=== PATIENT | female | born 1970 | race Caucasian/White ===

== ENCOUNTER → 2017-10-02 | Outpatient (CLI) | payer OTHER | END | disposition home or self-care (01) | LOC: C.LABPBG 08:38 | PROVIDERS: ATTEND Student in an Organized Health Care Education/Training Program | DX: Z00.00 Encounter for general adult medical examination without abnormal findings (principal) ==

== ENCOUNTER 2023-12-17 06:53 | Inpatient (IN) ==
--- OUTSIDE RECORDS SUMMARY | 2023-12-17 07:00 | External Medical Summary | Continuity of Care Document ---
Author Name Unknown Organization [address] Address [address] [place] [address] [id number] Care Team Providers Care Equal Opportunity Officer Name Role Phone Maryann Terry Primary Care Physician [phone] [facility]counter [facility] [id number] Date(s): 12/12/23 - 12/12/[address] [address] [phone] Encounter Diagnosis Fever(Discharge Diagnosis) - 12/12/23 Myalgia(Discharge Diagnosis) - 12/12/23 Cough(Discharge Diagnosis) - 12/12/23 Discharge Disposition: Home or Self Care Attending Physician: KECIA Stanley Danielle B Allergies, Adverse Reactions, Alerts Substance Criticality Severity Reaction Reaction Severity Status simvastatin Muscle ache Joint pain Active Adhesive bandage Unable to assess criticality Mild blisters redness Active Bee stings sensitivity to bees Active Assessment and Plan Extracted from: Title:Acute Visit Note Author:KECIA Stanley Dani elle B Date:12/12/23 1.Fever Fever of unknown etiology.Will order tickbornedisease testing including Lyme, Anaplasma, Babesia. Will also orderUA with reflex to culture, CBC with differential. 2.Myalgia In addition totesting above, will orderESR, CRP, ANAwithtiter, RF, CMP. 3.Cough Recommended the patient start oral antihistaminesuch as Zyrtec or Amber to help with postnasal drainage. Chest x-ray ordered as cough has been ongoing x 4 weeks and patient has past hx of breast ca. -Rest of plan dependent on testing results. -Ibuprofen/Tylenolfor pain and fever. -Follow-up if symptoms worsen or fail to improve. - Patient verbalizes understanding regarding plan of care and all questions answered. Immunizations Given and Recorded Vaccine Date Status Refusal Reason tetanus/diphtheria/pertuss, acel (Tdap) 08/29/20 G iven influenza virus vaccine, inactivated 1 10/18/17 Re corded influenza virus vaccine, inactivated 2 10/18/16 Re corded influenza virus vaccine, inactivated 3 12/16/06 Re corded tetanus toxoids-diphtheria, Td (Adult) 4 02/17/10 Recorded tetanus toxoids-diphtheria, Td (Adult) 5 07/09/00 Recorded 1Location History: patient 2Result Comment: 2018-02-13: Historical information-source unspecified 3Result Comment: 2018-02-13: Historical information-source unspecified 4Location History: patient 5Result Comment: 2018-02-13: Historical information-source unspecified Medications All Day Allergy (Cetirizine) 10 mg oral tablet Start: 08/18/23 7:58:00 AM EDT, 1 tab, PO, Daily, Disp# 90 tab, Refills: 3, PRN: NEEDED FOR ALLERGY SYMPTOMS, Pharmacy: [id number] Start Date: 08/18/23 Status: Ordered Aspirin Low Strength 81 mg oral delayed release tablet Start: 12/12/23 1:05:00 PM EDT, 1 tab, PO, Daily Start Date: 12/12/23 Status: Ordered benzonatate 100 mg oral capsule Start: 12/12/23 1:30:00 PM EDT, 2 cap, PO, tid, Disp# 30 cap, Pharmacy: [id number] Start Date: 12/12/23 Status: Ordered ibuprofen 200 mg oral capsule Start: 12/11/17 3:02:00 PM EDT, 3 cap, PO, q6h, PRN: as needed for headache Start Date: 12/11/17 Status: Ordered MiraLax oral powder for reconstitution Start: 09/03/22 11:10:00 AM EDT, 17 g =, PO, Daily, Disp# 527 g, Refills: 3, Pharmacy: [id number] Start Date: 09/03/22 Status: Ordered mupirocin 2% topical ointment Start: 09/03/22 11:27:00 AM EDT, 1 appl, topical, tid, Disp# 22 g, Refills: 3, Pharmacy: [id number] Start Date: 09/03/22 Status: Ordered phentermine 37.5 mg oral tablet Start: 03/01/21 3:54:00 PM EST, 1 tab, PO, Daily Start Date: 03/01/21 Status: Ordered topiramate 25 mg oral capsule Start: 03/01/21 3:54:00 PM EST, 1 cap, PO, bid Start Date: 03/01/21 Status: Ordered triamcinolone 0.1% topical cream See Instructions, Disp# 60 g, Refills: 0, use 1 application topically 3 times a day, Pharmacy: [id number] Start Date: 08/07/20 Status: Ordered Tums Start: 10/31/22 1:07:00 PM EDT, for calcium Start Date: 10/31/22 Status: Ordered Tylenol Start: 03/06/18 8:20:00 AM EST, 1,000 mg =, PO, q8h Start Date: 03/06/18 Status: Ordered vitamin D Start: 12/12/23 1:04:00 PM EDT, vitamin D Start Date: 12/12/23 Status: Ordered Mental Status 12/12/23 Barriers to Learning one year Vision imp airment, Other: glasses Mandatory Health Literacy Documentation Yes Health Literacy Communication Barriers N ever Primary Language Jamaican Problem List Condition Confirmation Course Effective Dates Status H ealth Status Informant Anxiety Confirmed Active Nevus Confirmed Active Acquired absence of both breasts Confirmed Active Chronic low back pain Confirmed 06/21/13 Active Heartburn Confirmed Active Hx of breast cancer Confirmed Active Hyperlipidemia Confirmed 10/10/09 Active Seasonal allergies Confirmed Active Diagnosis Diagnosis Type Effective Dates Health Status Clini shakira Service Informant Fever Discharge Diagnosis 12/12/23 Non-Specified Myalgia Discharge Diagnosis 12/12/23 Non-Specified Cough Discharge Diagnosis 12/12/23 Non-Specified Procedures Procedure Date Related Diagnosis Body Site Status MRI of breast 1 11/28/22 Completed Hysteroscopy 2 01/03/22 Completed Dilation and curettage 3, 4 2021 Completed Colonoscopy 5 08/05/18 Completed DELAYED BREAST PROSTHESIS 06/03/18 Completed Removal of right breast impl ant and I&D 03/04/18 Completed Breast reconstruction 6 01/28/18 C ompleted Mastectomy 7 01/28/18 Completed Stereotactically guided core needle biopsy of breast 11/11/17 Completed History of tubal ligation 1987 Completed Insertion of chest tube 1987 C ompleted last pap:2018 8 Completed Surgery 9 Completed 1Impression: No evidence of implant rupture bilaterally 2with D/C 3november 2021 4[place] 5COLO to cecum. redundant colon, repeat colo 10 years 6STE placement 7bilateral 8last pap: 2018 9mole removed from chin Vital Signs Most recent to oldest [Reference Range]: 1 Patient Weight 83.1 kg (12/12/23 1:05 PM) Temperature [36.5-37.9 DegC] 38.0 DegC *HI* (12/12/23 1:05 PM) Heart Rate 102 bpm (12/12/23 1:05 PM) Respiratory Rate 18 br/min (12/12/23 1:05 PM) Blood Pressure 120/80mmHg (12/12/23 1:05 PM) Cuff Pulse Pressure 40 mmHg (12/12/23 1:05 PM) Social History Social History Type Response Smoking Status Never smoked cigaret jocelyn Sex Female Sex Representation Female (finding) Implantable Device List Procedure Provider Procedure Date Device Type Site Unknown Unknown 09/15/18 Unknown Unknown Device Identifier Serial Number Lot or Batch Number Manufacturing Date Expiration Date Distinct Identification Code MRI Safety Implantable Status Assigning Authority Unknown Unknown [id number] Unknown 06/30/23 Unknown Unknown Active Unk nown Unknown Unknown [id number] Unknown 05/21/23 Unknown Unknown Active Unkn own FCM Outpt Note * KECIA Stanley Danielle B: PERFORM Event Display: FCM Outpt Note Authored Date: [id number] Chief Complaint sick for a month. started with head cold. continues with cough. 2 weeks ago had 2 ticks on her back. have achiness all over. neck stiff. temps 99-101 the past week. History of Present Illness Patient is a 53-year-old female here forcough x 1 month. Also with arthralgias and myalgias andneckand left lateral chestfor the past week.Intermittent fevers for the past week with highest temperaturearound 101. Intermittent fatigue. Cedar some bladder pressure 2 days ago but patient reports she took Diflucan andsymptoms are improved. Two simultaneous tick bites 2 weeks ago on back thought to be present for 48 hours.Denies congestion, facial pressure, ear pain, sore throat, night sweats, nausea, vomiting, diarrhea, constipation, rash. Review of Systems Unless stated in HPI. Physical Exam Vitals & Measurements T:38.0C HR:102(Monitored) RR:18 BP:120/80 SpO2:98% WT:83.100kg(Dosing) WT:83.1kg PHQ2 Data(Data Documented on:12/12/2023 13:05) Emotional health assessment NEGATIVE CONSTITUTIONAL: Well-developed, well nourished. No acute distress. NEUROLOGICAL: Patient alert, orientated, memory intact. Gait steady. HEENT: Head is normocephalic. Eyes- symmetrical, no erythema or discharge. Ears- Canals without erythema or discharge. Tympanic membrane intact, no erythema or effusion present. Nares- are patent bilaterally, no discharge noted. Oral- Oropharynx is clear, no erythema or exudate. Oral mucosa pink and moist. Lips are pink and moist, no lesions. Neck- Supple, no lymphadenopathy. LUNGS: Respirations even and unlabored, chest expansion symmetrical. Lung sounds clear in all lobes, no wheezing, crackles, or adventitious breath sounds. HEART: Rate and rhythm regular. No cardiac murmur, click, or rub noted. ABDOMEN: Soft, nontender. Bowel sounds active in all four quadrants. MUSCULOSKELETAL/EXTREMITIES: Extremities are intact, no redness or edema noted of upper or lower extremity.2small palpable potential lymph nodes anterior left axilla. Mobile. INTEGUMENTARY: Skindry, warm to touch. No rash, wounds, lesions noted on visible skin. PSYCHOSOCIAL: Calm and cooperative, interacts appropriately withstaff. Assessment/Plan 1.Fever Fever of unknown etiology.Will order tickbornedisease testing including Lyme, Anaplasma, Babesia. Will also orderUA with reflex to culture, CBC with differential. 2.Myalgia In addition totesting above, will orderESR, CRP, ANAwithtiter, RF, CMP. 3.Cough Recommended the patient start oral antihistaminesuch as Zyrtec or Amber to help with postnasal drainage. Chest x-ray ordered as cough has been ongoing x 4 weeks and patient has past hx of breast ca. -Rest of plan dependent on testing results. -Ibuprofen/Tylenolfor pain and fever. -Follow-up if symptoms worsen or fail to improve. - Patient verbalizes understanding regarding plan of care and all questions answered. Problem List/Past Medical History Ongoing Acquired absence of both breasts Anxiety Chronic low back pain Heartburn Hx of breast cancer Hyperlipidemia Nevus Seasonal allergies Resolved COVID-19 vaccine series completed Procedure/Surgical History MRI of breast| Service Date: 11/28/2022Hysteroscopy| Service Date: 2Dilation and curettage| Service Date: olonoscopy| Service Date: 08/05/2018DELAYED BREAST PROSTHESIS| Service Date: 2018 Removal of right breast implant and I&D| Service Date: 03/04/2018 Breast reconstruction| Service Date: 01/28/2018Mastectomy| Service Date: 01/28/2018Stereotactically guided core needle biopsy of breast| Service Date: 11/11/2017Insertion of chest tube| ServiceDate: 1988History of tubal ligation| Service Date: 1987last pap:2018Surgery Medications acetaminophen(Tylenol), 1000 mg, PO, q8h aspirin(Aspirin Low Strength 81 mg oral delayed release tablet), 81 mg= 1 tab, PO, Daily benzonatate(benzonatate 100 mg oral capsule), 200 mg= 2 cap, PO, tid calcium carbonate(Tums) cetirizine(All Day Allergy (Cetirizine) 10 mg oral tablet), 1 tab, PO, Daily, PRN ibuprofen(ibuprofen 200 mg oral capsule), 600 mg= 3 cap, PO, q6h, PRN mupirocin topical(mupirocin 2% topical ointment), 1 appl, topical, tid, 3 refills phentermine(phentermine 37.5 mg oral tablet), 37.5 mg= 1 tab, PO, Daily polyethylene glycol 3350(MiraLax oral powder for reconstitution), 17 g, PO, Daily, 3 refills topiramate(topiramate 25 mg oral capsule), 25 mg= 1 cap, PO, bid triamcinolone topical(triamcinolone 0.1% topical cream), See Instructions unknown medication(vitamin D) Allergies Adhesive bandage (Mild)blisters, redness Bee stingssensitivity to bees simvastatinMuscle ache, Joint pain Social History Smoking Status Never smoked cigarettes Alcohol - Denies Alcohol Use Employment/School - Low 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 Hypertension: Mother and Father. Stroke: Father. Type II diabetes mellitus: MGM. Health Status Family Member(s) Immunizations Vaccine Date Status tetanus/diphtheria/pertuss, acel (Tdap) 08/29/2020 Given influenza virus vaccine, inactivated 10/2017 Recorded Comments : patient influenza virus vaccine, inactivated 10/18/2016 Recorded Comments : 2018-02-13: Historical information-source unspecified tetanus toxoids-diphtheria, Td (Adult) 2010 Recorded Comments : patient influenza virus vaccine, inactivated 12/16/2006 Recorded Comments : 2018-02-13: Historical information-source unspecified tetanus toxoids-diphtheria, Td (Adult) 07/09/2000 Recorded Comments : 2018-02-13: Historical information-source unspecified Recommendations Health Maintenance Pending(in the next year) OverDue Adult Influenza Vaccine due08/17/23and every 1year Due Adult COVID-19 Vaccination due12/12/23Unknown Frequency Adult Social Determinants of Health Screening due12/12/23Unknown Frequency Pneumococcal Vaccine Adults and Adolescents with Chronic Illness due12/12/23One-time only Shingles Vaccine due12/12/23One-time only Satisfied(in the past 1 year) Satisfied Body Mass Index on09/10/23.Satisfied by PATEL Mcduffie Teresa Electronic Signature on File Electronically Reviewed/Signed by: KECIA Hooper Author Signature Dt/Tm:12/12/2023 02:55 PM Family Medicine DBN Patient Care team information Care Team Personnel Name: KECIA Terry Tara Position: Nurse Pract - Family Med Member Role: Primary Care Provider Address: [address] [place] [address], [place] [address] [place] Name: DO Zheng Brendan Position: Physician - Anesthesiologist Member Role: Lifetime Relationship Address: [address] [place] [address] [place] Name: MD Rojo Kristine L Position: Physician - Surgery Oncology Member Role: Lifetime Relationship Address: [address] [facility] [place] [address] [place] Care Team Related Persons Name: CODY BIRCH"
--- NOTE | 2023-12-17 07:17 | Emergency Department Note ---
History of Present Illness General Chief complaint: Illness Stated complaint: FEVER,COUGH,TICK BITES Time Seen by Provider: 12/17/23 06:58 History of Present Illness This is a 53-year-old female that presents to the emergency department via private vehicle with complaints of "fever". The patient states that 5 to 6 weeks ago she had cold-like symptoms and the cough has essentially persisted. Then 3 weeks ago she notes that she was outside doing roadside litter clean up and had 2 ticks that were embedded in her back. These were removed. She then notes that for greater than a week now she has had a fever, body aches, headaches. She states that each day the temperature seems to climb higher. Most recently temp 102 F. She notes that she normally does not experience a fever and the last time she recalls experiencing a fever one of the breast implants was infected postsurgery. The patient does note recent workup in the outpatient setting for the symptoms about 5 days ago. She notes that some of the tickborne tests are still pending. She was to have an outpatient CT scan performed today of the abdomen/pelvis to further assess her symptoms but noting worsening did present here for further assessment. Patient has been utilizing ibuprofen and acetaminophen for pain. She has not exceeded package recommendations. She notes that predominantly she is using ibuprofen and not as much acetaminophen. Home Medications Medication Instructions Recorded Confirmed Type cetirizine 10 mg capsule (Zyrtec) 10 mg PO QAM 09/01/19 12/17/23 History ibuprofen 200 mg tablet 200 mg PO Q6H PRN Pain 12/03/21 12/17/23 History phentermine 37.5 mg tablet 37.5 mg PO QAM #30 tabs 10/30/23 12/17/23 Rx calcium carbonate 1,000 mg PO DAILY 12/17/23 12/17/23 History cholecalciferol (vitamin D3) 50 50 mcg PO DAILY 12/17/23 12/17/23 History mcg (2,000 unit) tablet (Vitamin D3) topiramate 25 mg tablet 50 mg PO QAM 12/17/23 12/17/23 History Allergies Allergy/AdvReac Type Severity Reaction Status Date / Time adhesive Allergy Intermediate Blister Verified 12/17/23 08:24 simvastatin Allergy Unknown Unknown Verified 12/17/23 08:24 Past Med/Surg History Problem List (Updated 12/17/23 @ 10:42 by Matty Mcbride PA-C) Sepsis Back pain Anaplasmosis (Acute) Endometrial polyp Metabolic syndrome Mixed hyperlipidemia History of breast cancer Migraines Dietary counseling and surveillance Skin Lesion Routine gynecological examination Thickened endometrium Medical History Nausea and vomiting after administration of anesthetic agent with general Slow to wake up after anesthesia History of anesthesia reaction burning sensation in arm with IV, when initiating anesthesia Chronic back pain job related Acid reflux rare Anxiety Migraine Overweight Ozempic for this not DM Breast cancer Oct 2017 > no radiation or chemo Dyslipidemia, goal LDL below 160 Seasonal allergic reaction Surgical History History of colonoscopy H/O bilateral mastectomy History of chest tube placement age 17 spontaneous pneumothorax History of bilateral tubal ligation Family History Sister Asthma Mother Diabetes Kidney disease Father Stroke Hypertension Denies family history of Ovarian cancer Breast cancer Colorectal cancer Social History Smoking Status: Never smoker Second Hand Exposure: No; Do You Dip or Chew Tobacco: No; Hx Alcohol Use: No Hx Substance Use: No Preferred Language: Pashto Communication Ability: Effective Peel [employer] Tender Required: No Beliefs That Will Affect Care: None marital status: Current Living Situation: Spouse Feels Safe at Home: Yes Assistive Devices: Glasses Review of Systems A total of 10 systems reviewed and were otherwise negative Physical Exam Vital Signs Vital Signs - 24 hr 12/17/23 06:56 12/17/23 07:27 12/17/23 07:30 Temperature 38.2 C H Temperature Source Temporal Artery Scan Pulse Rate 119 H 110 H 109 H Pulse Rate from SpO2 Sensor 110 H 110 H Respiratory Rate 22 24 24 Blood Pressure 163/76 H Blood Pressure Mean 105 Pulse Oximetry 94 95 95 Oxygen Delivery Method Room Air Sepsis Recent Fever Within 48 Hours Yes Sepsis New/Unexplained Change in Mental Status No Sepsis Action Taken by Nursing MD Previously Notified 12/17/23 07:38 12/17/23 07:51 12/17/23 07:57 Temperature Temperature Source Pulse Rate 105 H 104 H Pulse Rate from SpO2 Sensor Respiratory Rate Blood Pressure Blood Pressure Mean Pulse Oximetry Oxygen Delivery Method Room Air Sepsis Recent Fever Within 48 Hours Sepsis New/Unexplained Change in Mental Status Sepsis Action Taken by Nursing 12/17/23 08:00 12/17/23 08:00 12/17/23 08:06 Temperature Temperature Source Pulse Rate 105 H Pulse Rate from SpO2 Sensor Respiratory Rate Blood Pressure 131/74 131/74 Blood Pressure Mean 94 94 Pulse Oximetry Oxygen Delivery Method Sepsis Recent Fever Within 48 Hours Sepsis New/Unexplained Change in Mental Status Sepsis Action Taken by Nursing 12/17/23 08:12 12/17/23 08:12 12/17/23 08:24 Temperature Temperature Source Pulse Rate 104 H 105 H 103 H Pulse Rate from SpO2 Sensor Respiratory Rate 23 18 Blood Pressure Blood Pressure Mean Pulse Oximetry Oxygen Delivery Method Sepsis Recent Fever Within 48 Hours Sepsis New/Unexplained Change in Mental Status Sepsis Action Taken by Nursing 12/17/23 08:45 12/17/23 08:49 12/17/23 09:00 Temperature 37.8 C H Temperature Source Oral Pulse Rate 96 H 95 H Pulse Rate from SpO2 Sensor Respiratory Rate 22 Blood Pressure Blood Pressure Mean Pulse Oximetry Oxygen Delivery Method Sepsis Recent Fever Within 48 Hours Sepsis New/Unexplained Change in Mental Status Sepsis Action Taken by Nursing 12/17/23 09:00 12/17/23 09:00 12/17/23 09:00 Temperature Temperature Source Pulse Rate Pulse Rate from SpO2 Sensor Respiratory Rate Blood Pressure 97/60 L 97/60 L 97/60 L Blood Pressure Mean 65 65 65 Pulse Oximetry Oxygen Delivery Method Sepsis Recent Fever Within 48 Hours Sepsis New/Unexplained Change in Mental Status Sepsis Action Taken by Nursing 12/17/23 09:27 12/17/23 09:30 12/17/23 09:45 Temperature Temperature Source Pulse Rate 94 H 94 H 95 H Pulse Rate from SpO2 Sensor Respiratory Rate 13 19 20 Blood Pressure Blood Pressure Mean Pulse Oximetry Oxygen Delivery Method Sepsis Recent Fever Within 48 Hours Sepsis New/Unexplained Change in Mental Status Sepsis Action Taken by Nursing 12/17/23 09:57 12/17/23 10:00 12/17/23 10:01 Temperature Temperature Source Pulse Rate 94 H 94 H Pulse Rate from SpO2 Sensor Respiratory Rate 15 18 Blood Pressure 107/54 L Blood Pressure Mean 82 Pulse Oximetry Oxygen Delivery Method Sepsis Recent Fever Within 48 Hours Sepsis New/Unexplained Change in Mental Status Sepsis Action Taken by Nursing 12/17/23 10:01 Temperature Temperature Source Pulse Rate Pulse Rate from SpO2 Sensor Respiratory Rate Blood Pressure 107/54 L Blood Pressure Mean 82 Pulse Oximetry Oxygen Delivery Method Sepsis Recent Fever Within 48 Hours Sepsis New/Unexplained Change in Mental Status Sepsis Action Taken by Nursing VITAL SIGNS - Vital signs and nursing notes were reviewed. Tachycardic, febrile. Mildly hypertensive. GENERAL -53-year-old female appearing her stated age who is in no acute distress. Communicates well with provider and answers questions appropriately. SKIN - Without rashes. No meningeal or petechial rash. HEAD - NC/AT. EYES - PERRL with EOMI bilaterally. Sclera anicteric. EARS - No deformities of external structures noted on gross examination bilaterally. External auditory canals without discharge or otorrhea. Tympanic membranes pearly harrell without retraction or bulging. No fluid or purulent material visualized behind the TM. Handle of malleus, umbo, cone of light, pars tensa/flaccid all easily visualized. NOSE - Midline and without cyanosis. No epistaxis or purulent drainage noted. Septum midline without deviation or septal hematoma noted. MOUTH/OROPHARYNX - Without perioral cyanosis. Buccal mucosa pink and moist and without leukoplakia. Tongue midline with equal elevation of palate bilaterally. No tonsillar hypertrophy, erythema, or exudates noted. Good dentition noted. NECK - Neck with FROM. Supple to palpation. No lymphadenopathy noted. No nuchal rigidity. LUNGS -coughing noted upon assessment. Chest wall symmetric without accessory muscle use, intercostals retractions, or central cyanosis. Normal vesicular breath sounds CTA B/L. No wheezes, rales, or rhonchi appreciated. CARDIAC -tachycardic without murmur. ABDOMEN - Abdominal contour normal without pulsations or visible masses. BS normoactive all four quadrants. No tenderness, palpable masses, hepatosplenomegaly, or ascites noted. EXTREMITIES - No clubbing or peripheral cyanosis. +5/5 strength noted in UE/LE bilaterally. NEUROLOGIC - Cranial nerves II through XII grossly intact. Sensory intact to light touch throughout. PSYCH - A&Ox3 and cooperates fully with examiner. Pt is very pleasant and interacts well with examiner. Course Administered Medications Sodium Bicarbonate 150 meq/ (Dextrose) 1,150 mls @ 125 mls/hr IV .Q9H12M AMY Stop: 12/17/23 20:11 Last Admin: 12/17/23 11:19 Dose: 125 mls/hr Documented By: MALIKA Ondansetron HCl (Ondansetron 4 Mg Od Tab) 4 mg PO Q4H PRN PRN Reason: Nausea And Vomiting Stop: 01/16/24 09:50 Last Admin: 12/17/23 10:21 Dose: 4 mg Documented By: GARETT Discontinued Medications Acetaminophen (Acetaminophen 325 Mg Tab) 650 mg PO NOW STA Stop: 12/17/23 07:12 Last Admin: 12/17/23 07:34 Dose: 650 mg Documented By: GARETT Doxycycline Hyclate (Doxycycline Hyclate 100 Mg Cap) 100 mg PO NOW STA Stop: 12/17/23 09:03 Last Admin: 12/17/23 09:09 Dose: 100 mg Documented By: GARETT Sodium Chloride (Nss) 1,000 mls @ 999 mls/hr IV .Q1H1M ONE Stop: 12/17/23 08:11 Last Infusion: 12/17/23 08:47 Dose: Infused Documented By: Admin: 12/17/23 07:34 Dose: 999 mls/hr Documented By: GARETT Ceftriaxone Sodium (Rocephin) 2,000 mg in 50 mls @ 100 mls/hr IV NOW STA Stop: 12/17/23 09:31 Last Infusion: 12/17/23 09:43 Dose: Infused Documented By: Admin: 12/17/23 09:09 Dose: 100 mls/hr Documented By: GARETT Ibuprofen (Ibuprofen 600 Mg Tab) 600 mg PO NOW ONE Stop: 12/17/23 09:54 Last Admin: 12/17/23 10:21 Dose: 600 mg Documented By: GARETT Medical Decision Making Laboratory Data 12/17/23 07:30 12/17/23 07:30 Lab Results 12/17/23 Range/Units 07:30 WBC 5.61 (4.8-10.8) K/ul RBC 3.47 L (4.20-5.40) M/uL Hgb 10.2 L (12.0-16.0) g/dl Hct 29.8 L (37.0-47.0) % MCV 85.9 (80.0-100.0) fL MCH 29.4 (25.0-34.0) pg MCHC 34.2 (32.0-36.0) g/dL RDW Std Deviation 40.4 (36.4-46.3) fL RDW Coeff of Angie 12.9 (11.5-14.5) % Plt Count 92 L (130-400) K/uL MPV 10.7 (9.4-12.4) fL Immature Gran % (Auto) 0.4 % Neut % (Auto) 74.5 % Lymph % (Auto) 19.4 % [place] % (Auto) 5.3 % Eos % (Auto) 0.0 % Baso % (Auto) 0.4 % Neut # (Auto) 4.18 (1.40-6.50) K/uL Lymph # (Auto) 1.09 L (1.20-3.40) K/uL [place] # (Auto) 0.30 (0.11-0.59) K/uL Eos # (Auto) 0.00 (0.00-0.50) K/uL Baso # (Auto) 0.02 (0.00-0.20) K/uL Immature Gran # (Auto) 0.02 (0.01-0.20) K/uL Platelet Estimate Decreased L (Normal) Peripher Smr Path Cons PT 12.7 H (9.0-12.0) Seconds INR 1.2 H (0.9-1.1) APTT 36 H (21-31) Seconds PTT Ratio 1.3 Sodium 132 L (136-145) mmol/L Potassium 3.7 (3.5-5.1) mmol/L Chloride 105 (98-107) mmol/L Carbon Dioxide 20 L (21-32) mmol/L Anion Gap 7 (3-11) BUN 13 (6-23) mg/dl Creatinine 0.89 (0.6-1.2) mg/dl Est Cr Clr Drug Dosing 72.7 ml/min eGFR 76.52 BUN/Creatinine Ratio 14.6 (10-20) Glucose 204 H (70-99(Fasting)) mg/dl Lactate 1.9 (0.4-2.0) mmol/L Calcium 8.1 L (8.6-10.3) mg/dl Magnesium 1.8 (1.7-2.4) mg/dl Total Bilirubin 0.7 (0.2-1.0) mg/dl AST 58 H (13-39) U/L ALT 58 H (7-52) U/L Alkaline Phosphatase 94 (34-104) U/L Troponin I High Sens 7.6 (0-14) pg/ml Total Protein 6.5 (6.0-8.3) gm/dl Albumin 3.4 (3.4-5.0) gm/dl Globulin 3.1 (2.5-4.0) gm/dl Albumin/Globulin Ratio 1.1 (0.9-2) Lipase 19 (11-82) U/L Procalcitonin 0.93 H (0-0.5) ng/ml TSH 0.947 (0.300-4.500) uIu/ml Adenovirus (PCR) Not Detected (NotDetected) Anaplasma Smear See Comment A Anaplasma Comment Pos for Anaplasma Babesia Smear See Comment B. pertussis DNA (PCR) Not Detected (NotDetected) B.parapertussis DNA PCR Not Detected (NotDetected) Lyme Disease Screen Negative (Negative) C. pneumoniae DNA (PCR) Not Detected (NotDetected) Coronavirus OC43 (PCR) Not Detected (NotDetected) Coronavirus HKU1 (PCR) Not Detected (NotDetected) Coronavirus 229E (PCR) Not Detected (NotDetected) SARS-CoV-2 (PCR) Not Detected (NotDetected) Coronavirus NL63 (PCR) Not Detected (NotDetected) Human Metapneumovir PCR Not Detected (NotDetected) Influenza Type A (PCR) Not Detected (NotDetected) Influenza Type B (PCR) Not Detected (NotDetected) M. pneumoniae (PCR) Not Detected (NotDetected) Parainfluenza 1 (PCR) Not Detected (NotDetected) Parainfluenza 2 (PCR) Not Detected (NotDetected) Parainfluenza 3 (PCR) Not Detected (NotDetected) Parainfluenza 4 (PCR) Not Detected (NotDetected) RSV (PCR) Not Detected (NotDetected) Entero/Rhino (PCR) Not Detected (NotDetected) Imaging Data Radiologist's Impression: Chest X-Ray 12/17/23 07:11 XR chest 1V portable CLINICAL HISTORY: fever, cough TECHNIQUE: Single frontal radiograph of the chest was obtained. Comparison: Comparison is made to chest radiograph 12/12/2023 FINDINGS: No lines and tubes are seen. The cardiomediastinal silhouette is normal. The lungs are clear. No evidence of pleural effusion or pneumothorax. IMPRESSION: No acute abnormalities and in particular no radiographic evidence of pneumonia. ACT 112: Negative or not required by law. Electronically signed by: Pedro Joseph M.D. 12/17/2023 7:30 AM MDM Narrative Patient was seen and evaluated as above in room C10. Review was performed of triage nursing notes and vital signs. I did review the patient's recent outpatient workup. The patient presents with a fever and a cough. On assessment she is tachycardic and febrile. EKG reveals sinus tachycardia at a rate of 110 bpm. QTc 403. QRS 72. No ST elevation on this rhythm tracing. IV access with established. Labs were drawn. Chest x-ray was performed and per my interpretation was negative for acute process. Formal radiology report is as above also noting no acute abnormalities. I will note that upon review of the EMR the patient is still with pending rheumatoid factor, ADA screen, Anaplasma, babesia testing. For today I did add on a peripheral smear to further assess Babesia/Anaplasma noting pending tests. Patient while here was medicated with IV fluids and oral acetaminophen. Patient appears dehydrated. Labs reveal no leukocytosis. Minor anemia noted with hemoglobin of 10.2. There is thrombocytopenia at 92 which is new. INR 1.2. Downtrending hyponatremia 132. Hyperglycemia 204. Lactate normal. Hypocalcemia 8.1. New transaminitis noted. Troponin negative. Lipase normal. Procalcitonin detectable and elevated at 0.93. TSH reveals euthyroid state. Anaplasma smear is positive. BioFire panel is negative. Patient will be medicated here with oral doxycycline for treatment of the Anaplasma but also will cover with IV ceftriaxone for additional tickborne illnesses and pulmonary coverage in the event occult pneumonia to be present despite negative chest x-ray. Low suspicion for PE at this time. Noting the patient's tachycardia, febrile state and overall clinically ill appearance plus anaplasmosis we will proceed with further evaluation and management in the inpatient setting. Additionally, blood cultures pending at this time. Case discussed with hospitalist service. Please refer to further documentation regarding her stay. GCS: 15 In the evaluation and treatment of this patient the following differential diagnoses were entertained: Pneumonia, bacteremia, PE, UTI, pyelonephritis, among others. Impression & Plan Anaplasmosis Discharge Plan Visit Data Chief Complaint: Illness Stated Complaint: FEVER,COUGH,TICK BITES ED Provider: Angelique Loja ED Midlevel Provider: Gabo Jimenes Discharge Problem: Anaplasmosis Patient Disposition: Admitted As Inpatient Condition: Good Discharge Instructions Interventions: ED Discharge Assessment Last Done: 12/17/23 14:56
--- NOTE | 2023-12-17 07:32 | XRay Report ---
XR chest 1V portable CLINICAL HISTORY: fever, cough TECHNIQUE: Single frontal radiograph of the chest was obtained. Comparison: Comparison is made to chest radiograph 12/12/2023 FINDINGS: No lines and tubes are seen. The cardiomediastinal silhouette is normal. The lungs are clear. No evid ence of pleural effusion or pneumothorax. IMPRESSION: No acute abnormalities and in particular no radiographic evidence of pneumonia. ACT 112: Negative or not required by law. Electronically signed by: Pedro Joseph M.D. 12/17/2023 7:30 AM
[2023-12-17] MEDS: SODIUM CHLORIDE 0.9% 1,000 ML IV ONE (07:34)
[2023-12-17] MEDS: ACETAMINOPHEN 325 MG TAB PO STA (07:34)
[2023-12-17 08:11] LABS: Albumin Globulin Ratio 1.1 (0.9-2); Albumin Level 3.4 gm/dl (3.4-5.0); BUN Creatinine Ratio 14.6 (10-20); Bilirubin,Total 0.7 mg/dl (0.2-1.0); Calcium 8.1 mg/dl (8.6-10.3); Creatinine Clr Calc Pharmacy 72.7 ml/min; Globulin 3.1 gm/dl (2.5-4.0); Magnesium 1.8 mg/dl (1.7-2.4); Potassium 3.7 mmol/L (3.5-5.1); Total Protein 6.5 gm/dl (6.0-8.3)
[2023-12-17 08:15] LABS: INR 1.2 (0.9-1.1); Partial Thromboplastin Ratio 1.3; Partial Thromboplastin Time 36 Seconds (21-31); Prothrombin Time 12.7 Seconds (9.0-12.0)
[2023-12-17 08:17] LABS: Troponin I High Sensitivity 7.6 pg/ml (0-14)
[2023-12-17 08:27] LABS: Thyroid Stimulating Hormone 0.947 uIu/ml (0.300-4.500)
[2023-12-17 08:41] LABS: Adenovirus PCR Not Detected (NotDetected); Bordetella parapertussis PCR Not Detected (NotDetected); Bordetella pertussis PCR Not Detected (NotDetected); Chlamydia pneumoniae PCR Not Detected (NotDetected); Coronavirus 229E PCR Not Detected (NotDetected); Coronavirus CoV-2 (COVID19)PCR Not Detected (NotDetected); Coronavirus HKU1 PCR Not Detected (NotDetected); Coronavirus NL63 PCR Not Detected (NotDetected); Coronavirus OC43PCR Not Detected (NotDetected); Human Metapneumovirus PCR Not Detected (NotDetected); Influenza A PCR Not Detected (NotDetected); Influenza B PCR Not Detected (NotDetected); Mycoplasma pneumoniae PCR Not Detected (NotDetected); Parainfluenza Virus 1 PCR Not Detected (NotDetected); Parainfluenza Virus 2 PCR Not Detected (NotDetected); Parainfluenza Virus 3 PCR Not Detected (NotDetected); Parainfluenza Virus 4 PCR Not Detected (NotDetected); Respiratory Syncytial VirusPCR Not Detected (NotDetected); Rhinovirus/Enterovirus PCR Not Detected (NotDetected)
[2023-12-17 08:56] LABS: Hematocrit (blood only) 29.8 % (37.0-47.0); Hemoglobin 10.2 g/dl (12.0-16.0); Mean Corpuscular Hemoglobin 29.4 pg (25.0-34.0); Mean Corpuscular Hgb Conc 34.2 g/dL (32.0-36.0); Mean Corpuscular Volume 85.9 fL (80.0-100.0); Mean Platelet Volume 10.7 fL (9.4-12.4); Platelet Count 92 K/uL (130-400); RDW Coefficient of Variation 12.9 % (11.5-14.5); RDW Standard Deviation 40.4 fL (36.4-46.3); Red Blood Count 3.47 M/uL (4.20-5.40); White Blood Count 5.61 K/ul (4.8-10.8)
[2023-12-17 08:58] LABS: Procalcitonin 0.93 ng/ml (0-0.5)
[2023-12-17 09:04] LABS: Basophils # (auto) 0.02 K/uL (0.00-0.20); Basophils % (auto) 0.4 %; Immature Granulocytes # (auto) 0.02 K/uL (0.01-0.20); Immature Granulocytes % (auto) 0.4 %; Lymphocytes # (auto) 1.09 K/uL (1.20-3.40); Lymphocytes % (auto) 19.4 %; Monocytes % (auto) 5.3 %; Neutrophils # (auto) 4.18 K/uL (1.40-6.50); Neutrophils % (auto) 74.5 %; Platelet Estimate Decreased (Normal)
[2023-12-17 09:06] LABS: Anaplasmosis Smear(Rpt to DOH) Pos for Anaplasma
[2023-12-17] MEDS: DOXYCYCLINE HYCLATE 100 MG CAP PO STA (09:09)
[2023-12-17] MEDS: cefTRIAXone SODIUM 2,000 MG/50 ML BAG IV STA (09:09)
[2023-12-17 09:22] LABS: Lyme Screen Rflx Confirmation Negative (Negative)
--- NOTE | 2023-12-17 09:38 | History & Physical Report ---
Date of Service December 17, 2023 Assessment & Plan (1) Anaplasmosis: Plan: Patient with history of ongoing fever, achiness, headaches, and nausea after 2 known tick bites approximately 2-3 weeks ago. Was not given antibiotics as outpatient. Labs drawn 12/11 with leukopenia, improved at admission. New thrombocytopenia. Today serology testing positive for Anaplasma. - Admit - BP 131/74, pulse 96, respiratory rate normal, temp 37.8 - Outpatient labs drawn 12/11 compared to today 12/16 respectively as follows - CBC: WBC 3.93-> 5.6, H&H 12.9/37.1-> 10.2/29.8, platelets 184-> 92 - PT/INR 12.7/1.2, APTT 36 - CMP (12/11 compared to 12/16 respectively): Na 135-> 132, CO2 25-> 20; AST 38 -> 58 , ALT 27 -> 58 calcium 9-> 8.1 - Lactate 1.9, procalcitonin 0.93, CRP (12/11) 1.38 - CXR- no acute processes - Serology- Anaplasma smear positive - Pending PCR - Doxycycline 100 mg p.o. twice daily - Repeat CBC, CMP a.m. (2) Sepsis: Plan: 2/2 to above - SIRS criteria on admission- RR 22, T 38.2C, HR 119 - Abx as above - Lactate 1.9 - AST 58, ALT 58 - Pending blood cx - Continue fluids - Follow Na levels AM (3) Back pain: Plan: Ongoing x "weeks"; no known preceding event causing symptoms; no triggers - L scapular/back pain, not new - h/o breast implants 2/2 BCA (2018); ? possible source - coughing x 6 weeks - Mild tenderness to palpation; appears musculoskeletal in nature - No personal h/o cardiac disease; h/o mixed hyperlipidemia, not on meds - CXR- no acute - EKG ST; no ischemic changes; trop 7.6 - Lipid panel (08/01/23)- Total cholesterol 225; otherwise grossly WNL - Voltaren to area prn to see if alleviates symptoms - Repeat lipid AM Plan Chronic migraine- Continue topiramate, hold phentermine 2/2 possible drug interactions while in-patient Dispo: Admit VTE prophylaxis: SCDs Code: Full Admission and Anticipated Discharge Date Admission Date: 12/17/2023 History of Present Illness Chief Complaint: Fever, cough, tick bite Primary Care Provider: Maryann Terry Patient is a 53-year-old female presenting to ED via private vehicle for ongoing fever, cough, and 2 reported tick bites approximately 3 weeks ago. Continue to have fever, body aches, headaches. Temperature reaching 102F. ED course: CBC- WBC 5.6, H&H 10.2/12.9, platelet 92; PT 12.7, INR 1.2; CMP- Na 132, CO2 20, AST 58, ALT 58; calcium 8.1; Pro-Long 0.93; Anaplasma positive. EKG sinus rhythm, tachycardic at 110 bpm.; CXR- no acute processes. Provided with NSS, doxycycline x 1 and Rocephin x 1 in ED. Patient is a 53-year-old female with PMHx HLD, migraines, h/o breast CA, and metabolic syndrome presenting for ongoing fever, aching, and headache. Reports that 2 to 3 weeks ago she had 2 ticks in her upper back, both which were removed but she believes that they were embedded for greater than 48 hours. States that she did not seek medical attention following this therefore has not been on any antibiotics since these bites. Started to notice symptoms of ORR, ongoing fever, generalized achiness, and nausea. Went to her PCP on 12/11 to have testing done which revealed leukopenia, hyponatremia, and elevated CRP at 1.3, with additional Lyme testing pending from outpatient provider. Reports that she was not given antibiotics at that time. Continuing to have fevers (Tmax 102.8) as well as aching, fatigue with mild SOB, and nausea without vomiting. Has been utilizing IBU and Tylenol [id number]. Never had this happen before. Additionally reporting left-sided scapular/back pain that is constant, does not change, and is dependent on amount of activity she does throughout the day. Please see Dr. Willett's attestation for adjustments/additions to treatment plan. Allergies Allergy/AdvReac Type Severity Reaction Status Date / Time adhesive Allergy Intermediate Blister Verified 12/17/23 08:24 simvastatin Allergy Unknown Unknown Verified 12/17/23 08:24 Home Medications Medication Instructions Recorded Confirmed Type cetirizine 10 mg capsule (Zyrtec) 10 mg PO QAM 09/01/19 12/17/23 History ibuprofen 200 mg tablet 200 mg PO Q6H PRN Pain 12/03/21 12/17/23 History phentermine 37.5 mg tablet 37.5 mg PO QAM #30 tabs 10/30/23 12/17/23 Rx calcium carbonate 1,000 mg PO DAILY 12/17/23 12/17/23 History cholecalciferol (vitamin D3) 50 50 mcg PO DAILY 12/17/23 12/17/23 History mcg (2,000 unit) tablet (Vitamin D3) topiramate 25 mg tablet 50 mg PO QAM 12/17/23 12/17/23 History Past Med/Surg History Problem List (Updated 12/17/23 @ 10:42 by Matty Mcbride PA-C) Sepsis Back pain Anaplasmosis (Acute) Endometrial polyp Metabolic syndrome Mixed hyperlipidemia History of breast cancer Migraines Dietary counseling and surveillance Skin Lesion Routine gynecological examination Thickened endometrium Medical History Nausea and vomiting after administration of anesthetic agent with general Slow to wake up after anesthesia History of anesthesia reaction burning sensation in arm with IV, when initiating anesthesia Chronic back pain job related Acid reflux rare Anxiety Migraine Overweight Ozempic for this not DM Breast cancer Oct 2017 > no radiation or chemo Dyslipidemia, goal LDL below 160 Seasonal allergic reaction Surgical History History of colonoscopy H/O bilateral mastectomy History of chest tube placement age 17 spontaneous pneumothorax History of bilateral tubal ligation Family History Sister Asthma Mother Diabetes Kidney disease Father Stroke Hypertension Denies family history of Ovarian cancer Breast cancer Colorectal cancer Social History Smoking Status: Never smoker Second Hand Exposure: No; Do You Dip or Chew Tobacco: No; Hx Alcohol Use: No Hx Substance Use: No Preferred Language: [place]al[place] Communication Ability: Effective Phlebotomy Instructor Required: No Beliefs That Will Affect Care: None marital status: Current Living Situation: Spouse Feels Safe at Home: Yes Assistive Devices: Glasses Review of Systems Review of Systems: All systems reviewed & are unremarkable except as noted in Subjective Physical Exam Physical Exam: General: Appears uncomfortable Skin: Warm and dry; 2, small, minimally erythematous areas where previous ticks were removed from on back (near L scapula, just below R scapula); no erythema migrans Head: Normocephalic, atraumatic Eyes: PERRL, conjunctivae clear, sclera non-icteric; EOM intact ENT: External ear and ear canal without swelling; nose atraumatic; good dentition Neck: Supple, no LAD; no JVD Cardio: Tachycardic, regular rhythm, no M/G/R, S1 and S2 normal Resp: Chest wall symmetric, normal respiratory effort; No respiratory distress, Lungs CTA in all lobes bilaterally, no wheezes, rales, or rhonchi Abdomen: Soft, symmetric, nontender; no distention; No masses or hepatosplenomegaly MSK: No deformities, strength equal and symmetric; sensation normal to UE/LE; pulses palpable and equal; No edema; minimal tenderness to palpation L back/armpit Neuro: Awake, alert; CN intact Psych: Appropriate mood and affect; good judgement and insight. is present in room at time of visit Results & Data Results & Data Vital Signs (Past 12 Hours) Vital Signs Temp Pulse Resp BP Pulse Ox O2 Del Method 12/17/23 08:49 37.8 C H 12/17/23 08:45 96 H 12/17/23 08:24 103 H 18 12/17/23 08:12 105 H 23 12/17/23 08:12 104 H 12/17/23 08:06 105 H 12/17/23 08:00 131/74 12/17/23 08:00 131/74 12/17/23 07:57 104 H 12/17/23 07:51 105 H 12/17/23 07:38 Room Air 12/17/23 07:30 109 H 24 95 12/17/23 07:27 110 H 24 95 12/17/23 06:56 38.2 C H 119 H 22 163/76 H 94 Room Air Laboratory Results 12/17/23 07:30 Aerobic Blood Culture - Pending Blood Anaerobic Blood Culture - Pending 12/17/23 07:30 WBC 5.61 RBC 3.47 L Hgb 10.2 L Hct 29.8 L MCV 85.9 MCH 29.4 MCHC 34.2 RDW Std Deviation 40.4 RDW Coeff of Angie 12.9 Plt Count 92 L MPV 10.7 Immature Gran % (Auto) 0.4 Neut % (Auto) 74.5 Lymph % (Auto) 19.4 [place]ayson % (Auto) 5.3 Eos % (Auto) 0.0 Baso % (Auto) 0.4 Neut # (Auto) 4.18 Lymph # (Auto) 1.09 L [place] # (Auto) 0.30 Eos # (Auto) 0.00 Baso # (Auto) 0.02 Immature Gran # (Auto) 0.02 Platelet Estimate Decreased L Peripher Smr Path Cons PT 12.7 H INR 1.2 H APTT 36 H PTT Ratio 1.3 Sodium 132 L Potassium 3.7 Chloride 105 Carbon Dioxide 20 L Anion Gap 7 BUN 13 Creatinine 0.89 Est Cr Clr Drug Dosing 72.7 eGFR 76.52 BUN/Creatinine Ratio 14.6 Glucose 204 H Lactate 1.9 Calcium 8.1 L Magnesium 1.8 Total Bilirubin 0.7 AST 58 H ALT 58 H Alkaline Phosphatase 94 Troponin I High Sens 7.6 Total Protein 6.5 Albumin 3.4 Globulin 3.1 Albumin/Globulin Ratio 1.1 Lipase 19 Procalcitonin 0.93 H TSH 0.947 Adenovirus (PCR) Not Detected Anaplasma Smear See Comment A Anaplasma Comment Pos for Anaplasma Babesia Smear See Comment B. pertussis DNA (PCR) Not Detected B.parapertussis DNA PCR Not Detected Lyme Disease Screen Negative C. pneumoniae DNA (PCR) Not Detected Coronavirus OC43 (PCR) Not Detected Coronavirus HKU1 (PCR) Not Detected Coronavirus 229E (PCR) Not Detected SARS-CoV-2 (PCR) Not Detected Coronavirus NL63 (PCR) Not Detected Human Metapneumovir PCR Not Detected Influenza Type A (PCR) Not Detected Influenza Type B (PCR) Not Detected M. pneumoniae (PCR) Not Detected Parainfluenza 1 (PCR) Not Detected Parainfluenza 2 (PCR) Not Detected Parainfluenza 3 (PCR) Not Detected Parainfluenza 4 (PCR) Not Detected RSV (PCR) Not Detected Entero/Rhino (PCR) Not Detected Diagnostic Findings Chest X-Ray 12/17/23 07:11 XR chest 1V portable CLINICAL HISTORY: fever, cough TECHNIQUE: Single frontal radiograph of the chest was obtained. Comparison: Comparison is made to chest radiograph 12/12/2023 FINDINGS: No lines and tubes are seen. The cardiomediastinal silhouette is normal. The lungs are clear. No evidence of pleural effusion or pneumothorax. IMPRESSION: No acute abnormalities and in particular no radiographic evidence of pneumonia. ACT 112: Negative or not required by law. Electronically signed by: Pedro Joseph M.D. 12/17/2023 7:30 AM ECG Additional Comments: Sinus tachycardia, 110 bpm, AL 154, QRS 72, QT/QTc 298/403 Nonspecific T wave abnormalities in inferior leads Code Status & VTE Plan Code Status Full VTE Prophylaxis Plan VTE Prophylaxis will be ordered: Yes Supervising Physician Co-Signing Physician Notes I personally saw and examined the patient. I independently reviewed the labs, EKG, imaging, problem list, medication list, past medical history and family history. I verified all yeung points and agree with Matty Mcbride PA-C with the following exceptions and/or additions: 53 year old female presents to the ER with cough for three weeks, generalized weakness, fatigue and nausea for last 2 weeks. Anaplasmosis smear positive in the ER O/E HS RRR, no murmurs, Chest CTAB, Abdo SNT A/P Anaplasmosis / sepsis - no need for 30cc/kg as not hypotensive and lactate normal. Doxycycline 100mg IV BID for anaplasmosis, follow up blood cultures PG Care Time/CCT Total # of Minutes Spent Total Time Spent with Patient: Total time spent is greater than 50% in coordination of care (as documented) at patient's floor/unit and/or counseling patient: Coding Level of Care Code 21423 INT INP/OBS CARE 3/75MIN Diagnoses Anaplasmosis A77.49 Sepsis A41.9 Back pain M54.9 Time Spent (min) 75
[2023-12-17] MEDS: IBUPROFEN 600 MG TAB PO ONE (10:21)
[2023-12-17] MEDS: ONDANSETRON 4 MG OD TAB PO PRN (10:21)
[2023-12-17] MEDS ORDERED: STAT IV/IM STA (10:48)
[2023-12-17] MEDS: SODIUM BICARBONATE 8.4% 150 MEQ in DEXTROSE 5% 1,000 ML IV SCH (11:19)
--- NOTE | 2023-12-17 11:53 | Electrocardiogram Report ---
Test Reason : Blood Pressure : */* mmHG Vent. Rate : 110 BPM Atrial Rate : 110 BPM P-R Int : 154 ms QRS Dur : 72 ms QT Int : 298 ms P-R-T Axes : 28 39 53 degrees QTcB Int : 403 ms Sinus tachycardia Abnormal ECG When compared with ECG of 04-Oct-2021 09:08, Nonspecific T wave abnormality now evident in Inferior leads Confirmed by Orville Ruth ([id number]) on 12/17/2023 11:52:49 AM Referred By: REFERRED SELF Confirmed By: Orville uRth
[2023-12-17] MEDS ORDERED: DICLOFENAC SOD 1% GEL 100 GM TUBE EXT PRN (15:16)
[2023-12-17] MEDS ORDERED: MELATONIN 3 MG TAB PO PRN (15:16)
[2023-12-17] MEDS: ACETAMINOPHEN 325 MG TAB PO PRN (18:02)
[2023-12-17] MEDS: DOXYCYCLINE HYCLATE 100 MG in DEXTROSE 5% MINI-B 100 ML IV SCH (20:55)
[2023-12-17] MEDS: BENZONATATE 100 MG CAPSULE PO PRN (20:55)
[2023-12-17] MEDS: IBUPROFEN 200 MG TAB PO PRN (20:55)
[2023-12-18 07:36] LABS: Hematocrit (blood only) 29.5 % (37.0-47.0); Hemoglobin 9.8 g/dl (12.0-16.0); Mean Corpuscular Hemoglobin 29.1 pg (25.0-34.0); Mean Corpuscular Hgb Conc 33.2 g/dL (32.0-36.0); Mean Corpuscular Volume 87.5 fL (80.0-100.0); Mean Platelet Volume 10.8 fL (9.4-12.4); Platelet Count 103 K/uL (130-400); RDW Coefficient of Variation 13.1 % (11.5-14.5); Red Blood Count 3.37 M/uL (4.20-5.40); White Blood Count 5.14 K/ul (4.8-10.8)
[2023-12-18 07:54] LABS: BUN Creatinine Ratio 20.8 (10-20); Bilirubin,Total 0.4 mg/dl (0.2-1.0); Calcium 8.1 mg/dl (8.6-10.3); Creatinine Clr Calc Pharmacy 83.2 ml/min; Globulin 2.9 gm/dl (2.5-4.0); Total Protein 5.9 gm/dl (6.0-8.3)
[2023-12-18 07:57] LABS: INR 1.1 (0.9-1.1); Prothrombin Time 12.1 Seconds (9.0-12.0)
[2023-12-18 08:00] LABS: Basophils # (auto) 0.03 K/uL (0.00-0.20); Basophils % (auto) 0.6 %; Eosinophils # (auto) 0.05 K/uL (0.00-0.50); Immature Granulocytes # (auto) 0.03 K/uL (0.01-0.20); Immature Granulocytes % (auto) 0.6 %; Lymphocytes # (auto) 2.63 K/uL (1.20-3.40); Lymphocytes % (auto) 51.2 %; Monocytes # (auto) 0.59 K/uL (0.11-0.59); Monocytes % (auto) 11.5 %; Neutrophils # (auto) 1.81 K/uL (1.40-6.50); Neutrophils % (auto) 35.1 %
--- NOTE | 2023-12-18 09:02 | Hospitalist Progress Note ---
Date of Service December 18, 2023 Assessment & Plan (1) Anaplasmosis: Plan: Patient with history of ongoing fever, achiness, headaches, and nausea after 2 known tick bites approximately 2-3 weeks ago. Was not given antibiotics as outpatient. Labs drawn 12/11 with leukopenia, improved at admission. New thrombocytopenia. Temp 38.2C on admission, pulse 119bpm, BP 163/76 Biofire negative CXR without acute process Lyme testing negative AST/ALT slight elevation. INR 1.2. Platelets 92 (from recent 184). Lactic 1.9, procalcitonin 0.92. Serology POSITIVE for Anaplasma. Anaplasmosis PRN pending as well as Babesia PCR Hgb stable following 1L IVF w/ improvement in electrolytes/Na level. AST/ALT with improvement, platelets improved to 103 and INR to 1.1. Provided Doxycycline IV BID given intolerance to PO on admission (reported vomiting within hour of taking, also doesn't take a lot of water intake) and also reported having been taking ibuprofen 800mg q8h at home for the past week for headache/pain symptoms and suspect has some gastritis. No overt epigastric tenderness (generalized cramping) and lipase wnl 19 on admission NO FURTHER FEVERS today, reports feeling better Will convert back to IV BID FOR NOW given issues w/ PO and will continue to enco urage fluid intake w/ PO intake to prevent pill esophagitis. Placing on pepcid IV BID and if improvement in reflux/PO tolerance can convert back to PO BID tomorrow to complete course. Encouraged PO intake, monitor for additional IVF as needed Increased ibuprofen to 600mg prn as needed per request and improvement in platelet function. Tylenol available as needed Lidocaine patch for neck, tessalon pearls for cough (could be related to reflux as well, reports waking up at night coughing as well at times) BP borderline but takes topamax, discussed and on for migraines as well but will monitor to hold if needed. Continued inpatient stay. 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 (2) Sepsis: Plan: 2/2 to above - SIRS criteria on admission- RR 22, T 38.2C, HR 119. Lactic 1.9. Doxycycline as above, blood cultures pending Na improved/normal and will continue tx as above (3) Back pain: Plan: Ongoing x "weeks"; no known preceding event causing symptoms; no triggers L scapular/back pain, not new H/o breast implants 2/2 BCA (2018); ? possible source coughing x 6 weeks Mild tenderness to palpation; appears musculoskeletal in nature No personal h/o cardiac disease; h/o mixed hyperlipidemia, not on meds CXR- no acute EKG ST; no ischemic changes; trop 7.6 Lipid panel (08/01/23)- Total cholesterol 225; otherwise grossly WNL Voltaren to area prn to see if alleviates symptoms Improving, ?2nd to tick bourne illness as above. Of note, do see UA from 12/11 with both blood/RBC, ?underlying kidney stone Repeat UA/cx pending Plan Chronic migraine- Continue topiramate Hold phentermine 2/2 possible drug interactions while in-patient, she does endorse uses the topamax at times to counteract the effects of the phentermine monitor to hold topamax for BP if needed Continued inpatient stay, converted back to IV Doxy BID to ensure ability to take and working on H2 BID and possible dc in AM on oral Doxy to complete the course and will plan to continue pepcid/acid suppression as well. Admission and Anticipated Discharge Date Admission Date: December 17, 2023 Supervising Physician Co-Signing Physician Notes The patient was not seen by me. The chart was reviewed. Case discussed with JH Smith. Agree with assessment and plan Subjective Eval this afternoon, feeling better than admission. Had been bite by tick on the , ongoing issues since that time. Seen by PCP, Lyme testing negative but now w/ anaplasmosis. On Doxy IV, had PO in ER and about 1/2 hr threw back up. Had been taking ibuprofen 800mg q8h at home, not on PPI/H2 at baseline but reports they wanted her to be on pepcid. Discussed will order and rec to continue. Will increase ibuprofen to 600mg as needed for headache, platelets improved. Takes topamax for weight loss but also migraine history. Encouraged PO fluid intake, mm slightly dry. Reports decreased fevers, discussed hopefully within 24-48hr of treatment should be improved. Discussed montioring overnight, labs in AM and possible discharge. She is to work tomorrow and discussed taking off. Next scheduled shift Fri/ next week and would not be back until the following weekend and agreed should have some time off to recover from current illness. Some neck discomfort, lymphadenopathy, will order lidocaine patch for pain. Cough lasting a while, will order tessalon pearls as well. Questions/concerns addressed at this time, updated in room. Physical Exam Physical Exam: General: 53yo female sitting up in chair, in room, fatigued appearing but reporting feeling better than admission, NAD HEENT; head atraumatic, normocephalic, mm slightly DRY, trachea midline, +lym phadenopathy Resp: CTA, no significant w/c/r, on room air CV: RRR, no significant mrg, no significant leg edema GI: +BS, soft, no overt tenderness but generalized cramping reported ; no [place] MSK/Neuro: +tenderness to neck/paraspinal muscle tightness Psych: AOx3, cooperative with exam but fatigued appearing On admission noted to have 2, small, minimally erythematous areas where previous ticks were removed from on back (near L scapula, just below R scapula); no erythema migrans Results & Data Results & Data Vital Signs (Past 12 Hours) Vital Signs Temp Pulse Resp BP Pulse Ox O2 Del Method 12/18/23 07:27 36.6 C 77 16 95/60 L 97 Room Air Laboratory Results 12/18/23 12/17/23 Range/Units 06:50 07:30 WBC 5.14 (4.8-10.8) K/ul RBC 3.37 L (4.20-5.40) M/uL Hgb 9.8 L (12.0-16.0) g/dl Hct 29.5 L (37.0-47.0) % MCV 87.5 (80.0-100.0) fL MCH 29.1 (25.0-34.0) pg MCHC 33.2 (32.0-36.0) g/dL RDW Std Deviation 42.0 (36.4-46.3) fL RDW Coeff of Angie 13.1 (11.5-14.5) % Plt Count 103 L (130-400) K/uL MPV 10.8 (9.4-12.4) fL Immature Gran % (Auto) 0.6 % Neut % (Auto) 35.1 % Lymph % (Auto) 51.2 % Howell % (Auto) 11.5 % Eos % (Auto) 1.0 % Baso % (Auto) 0.6 % Neut # (Auto) 1.81 (1.40-6.50) K/uL Lymph # (Auto) 2.63 (1.20-3.40) K/uL Howell # (Auto) 0.59 (0.11-0.59) K/uL Eos # (Auto) 0.05 (0.00-0.50) K/uL Baso # (Auto) 0.03 (0.00-0.20) K/uL Immature Gran # (Auto) 0.03 (0.01-0.20) K/uL Peripher Smr Path Cons PT 12.1 H (9.0-12.0) Seconds INR 1.1 (0.9-1.1) Sodium 141 D (136-145) mmol/L Potassium 4.0 (3.5-5.1) mmol/L Chloride 110 H (98-107) mmol/L Carbon Dioxide 26 (21-32) mmol/L Anion Gap 5 (3-11) BUN 16 (6-23) mg/dl Creatinine 0.77 (0.6-1.2) mg/dl Est Cr Clr Drug Dosing 83.2 ml/min eGFR 91.04 BUN/Creatinine Ratio 20.8 H (10-20) Glucose 97 (70-99(Fasting)) mg/dl Calcium 8.1 L (8.6-10.3) mg/dl Total Bilirubin 0.4 (0.2-1.0) mg/dl AST 41 H (13-39) U/L ALT 42 (7-52) U/L Alkaline Phosphatase 84 (34-104) U/L Total Protein 5.9 L (6.0-8.3) gm/dl Albumin 3.0 L (3.4-5.0) gm/dl Globulin 2.9 (2.5-4.0) gm/dl Albumin/Globulin Ratio 1.0 (0.9-2) Anaplasma Comment Pos for Anaplasma Lyme Disease Screen Negative (Negative) Diagnostic Findings Chest X-Ray 12/17/23 07:11 XR chest 1V portable CLINICAL HISTORY: fever, cough TECHNIQUE: Single frontal radiograph of the chest was obtained. Comparison: Comparison is made to chest radiograph 12/12/2023 FINDINGS: No lines and tubes are seen. The cardiomediastinal silhouette is normal. The lungs are clear. No evidence of pleural effusion or pneumothorax. IMPRESSION: No acute abnormalities and in particular no radiographic evidence of pneumonia. ACT 112: Negative or not required by law. Electronically signed by: Pedro Joseph M.D. 12/17/2023 7:30 AM PG Care Time/CCT Total # of Minutes Spent Total Time Spent with Patient: Total time spent is greater than 50% in coordination of care (as documented) at patient's floor/unit and/or counseling patient: Coding Level of Care Code 69945 SUB INP/OBS CARE 3/50MIN Diagnoses Anaplasmosis A77.49 Sepsis A41.9 Back pain M54.9
[2023-12-18] MEDS: TOPIRAMATE 50 MG TAB PO SCH (09:11)
[2023-12-18] MEDS: CETIRIZINE HCL 10 MG TABLET PO SCH (09:11)
[2023-12-18] MEDS: CALCIUM CARBONATE 1250MG TAB PO SCH (09:11)
[2023-12-18] MEDS: FAMOTIDINE 20MG IV PUSH 20 MG/5 ML SYR IV STA (15:32)
[2023-12-18] MEDS: BENZONATATE 100 MG CAPSULE PO PRN (16:11)
[2023-12-18] MEDS: LIDOCAINE 5% 1 PATCH TD SCH (16:14)
[2023-12-18 16:18] LABS: Appearance Urine Clear (Clear); Bacteria Urine Automated None Seen (None Seen); Bilirubin Urine Negative (Negative); Blood Urine 1+ (Negative); Cast Urine Automated 0-2 /lpf (0-2); Color Urine Yellow; Epithelial Cell Urine Auto 0-2 /hpf (0-2); Glucose Urine UA Negative (Negative); Ketones Urine Negative (Negative); Leukocyte Esterase Urine Negative (Negative); Nitrite Urine Negative (Negative); Protein Urine 1+ (Negative); Specific Gravity Urine 1.012 (1.000-1.030); Urobilinogen Urine Negative (Negative); WBC Urine Automated 0-5 /hpf (0-5); pH Urine 8.5 (4.5-7.5)
--- NOTE | 2023-12-18 17:34 | Ultrasound Report ---
US renal/blad retro comp CLINICAL HISTORY: hematuria TECHNIQUE: Multiple sonographic real-time images of the kidneys and bladder were obtained. COMPARISON: None available at the time of this dictation. FINDINGS: The right kidney measures 10.9 cm in length, and the left kidney measures 10.6 cm in length. The right kidney is normal in size, contour, cortical thickness, and echogenicity. No hydronephrosis is identified. No renal lesion is identified. The left kidney is normal in size, contour, cortical thickness and echogenicity. No hydronephrosis i s identified. No renal lesion is identified. The bladder is partially distended. Bilateral jets are seen. IMPRESSION: Unremarkable renal ultrasound. ACT 112: Negative or not required by law. Electronically signed by: Pedro Joseph M.D. 12/18/2023 5:33 PM
[2023-12-18 20:11] VITALS: O2SAT 96
[2023-12-18] MEDS: IBUPROFEN 600 MG TAB PO PRN (20:51)
[2023-12-18] MEDS: DOXYCYCLINE HYCLATE 100 MG in DEXTROSE 5% MINI-B 100 ML IV SCH (20:52)
[2023-12-18] MEDS ORDERED: DOXYCYCLINE HYCLATE 100 MG CAP PO SCH (21:00)
[2023-12-18] MEDS: FAMOTIDINE 20MG IV PUSH 20 MG/5 ML SYR IV SCH (21:49)
[2023-12-18 22:22] LABS: Appearance Urine Clear (Clear); Bacteria Urine Automated None Seen (None Seen); Bilirubin Urine Negative (Negative); Blood Urine Trace (Negative); Cast Urine Automated 0-2 /lpf (0-2); Color Urine Yellow; Epithelial Cell Urine Auto 0-2 /hpf (0-2); Glucose Urine UA Negative (Negative); Ketones Urine Negative (Negative); Leukocyte Esterase Urine Negative (Negative); Nitrite Urine Negative (Negative); Protein Urine Trace (Negative); Specific Gravity Urine 1.012 (1.000-1.030); Urobilinogen Urine Negative (Negative); WBC Urine Automated 0-5 /hpf (0-5)
[2023-12-19 07:13] LABS: Hematocrit (blood only) 30.1 % (37.0-47.0); Hemoglobin 10.1 g/dl (12.0-16.0); Mean Corpuscular Hemoglobin 29.2 pg (25.0-34.0); Mean Corpuscular Hgb Conc 33.6 g/dL (32.0-36.0); Mean Platelet Volume 10.3 fL (9.4-12.4); Platelet Count 165 K/uL (130-400); RDW Coefficient of Variation 13.2 % (11.5-14.5); RDW Standard Deviation 41.4 fL (36.4-46.3); Red Blood Count 3.46 M/uL (4.20-5.40); White Blood Count 6.17 K/ul (4.8-10.8)
[2023-12-19 07:27] LABS: Albumin Level 3.1 gm/dl (3.4-5.0); BUN Creatinine Ratio 22.6 (10-20); Bilirubin,Total 0.4 mg/dl (0.2-1.0); Calcium 8.6 mg/dl (8.6-10.3); Creatinine Clr Calc Pharmacy 76.3 ml/min; Globulin 3.2 gm/dl (2.5-4.0); Magnesium 2.1 mg/dl (1.7-2.4); Total Protein 6.3 gm/dl (6.0-8.3)
[2023-12-19 07:31] LABS: ALC (manual) 3.39 K/uL (1.2-3.4); ANC (manual) 2.04 K/uL (1.4-6.5); Eosinophils # (manual) 0.12 K/uL (0-0.50); Eosinophils % (manual) 2 %; Lymphocytes # (manual) 2.59 K/uL (1.2-3.4); Lymphocytes % (manual) 42 %; Monocytes # (manual) 0.62 K/uL (0.11-0.59); Monocytes % (manual) 10 %; Neutrophils # (manual) 2.04 K/uL (1.40-6.50); Neutrophils % (manual) 33 %; Reactive Lymphocytes % (manual) 13 %
[2023-12-19 07:36] VITALS: RESP 18; TEMP 97.9
--- NOTE | 2023-12-19 07:49 | Hospitalist Progress Note ---
Date of Service December 19, 2023 Assessment & Plan (1) Anaplasmosis: Plan: Patient with history of ongoing fever, achiness, headaches, and nausea after 2 known tick bites approximately 2-3 weeks ago. Was not given antibiotics as outpatient. Labs drawn 12/11 with leukopenia, improved at admission. New thrombocytopenia. Temp 38.2C on admission, pulse 119bpm, BP 163/76 Biofire negative CXR without acute process Lyme testing negative AST/ALT slight elevation. INR 1.2. Platelets 92 (from recent 184). Lactic 1.9, procalcitonin 0.92. Serology POSITIVE for Anaplasma. Anaplasmosis PRN pending as well as Babesia PCR Hgb stable following 1L IVF w/ improvement in electrolytes/Na level. AST/ALT with improvement, platelets improved to 103 and INR to 1.1. Provided Doxycycline IV BID given intolerance to PO on admission (reported vomiting within hour of taking, also doesn't take a lot of water intake) and also reported having been taking ibuprofen 800mg q8h at home for the past week for headache/pain symptoms and suspect has some gastritis. No overt epigastric tenderness (generalized cramping) and lipase wnl 19 on admission NO FURTHER FEVERS today (12/17), reports feeling better Will convert back to IV BID FOR NOW given issues w/ PO and will continue to encourage fluid intake w/ PO intake to prevent pill esophagitis. Placing on pepcid IV BID and if improvement in reflux/PO tolerance can convert back to PO BID tomorrow to complete course. Encouraged PO intake, monitor for additional IVF as needed Increased ibuprofen to 600mg prn as needed per request and improvement in platelet function. Tylenol available as needed Lidocaine patch for neck, tessalon pearls for cough (could be related to reflux as well, reports waking up at night coughing as well at times) BP borderline but takes topamax, discussed and on for migraines as well but will monitor to hold if needed. Continued inpatient stay. 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 12/18 VSS, BP 135/88. 96% on RA. Remaining afebrile. WBC 6.1k, Hgb improved to 10.1. Platelets improved to 165. LFTs now wnl. Burning with IV, switching to PO BID to ensure able to tolerate oral today. Continue pepcid BID (monitor for need for protonix if ineffective). Codeine cough syrup for chronic cough to see if effective. Will see if able to tolerate PO can consider dc home later this afternoon. (2) Sepsis: Plan: 2/2 to above - SIRS criteria on admission- RR 22, T 38.2C, HR 119. Lactic 1.9. Doxycycline as above, blood cultures pending Na improved/normal and will continue tx as above (3) Back pain: Plan: Ongoing x "weeks"; no known preceding event causing symptoms; no triggers L scapular/back pain, not new H/o breast implants 2/2 [facility] (2018); ? possible source coughing x 6 weeks Mild tenderness to palpation; appears musculoskeletal in nature No personal h/o cardiac disease; h/o mixed hyperlipidemia, not on meds CXR- no acute EKG ST; no ischemic changes; trop 7.6 Lipid panel (08/01/23)- Total cholesterol 225; otherwise grossly WNL Voltaren to area prn to see if alleviates symptoms Improving, ?2nd to tick bourne illness as above. Of note, do see UA from 12/11 with both blood/RBC, ?underlying kidney stone Repeat UA/cx pending Plan Chronic migraine- Continue topiramate Hold phentermine 2/2 possible drug interactions while in-patient, she does endorse uses the topamax at times to counteract the effects of the phentermine monitor to hold topamax for BP if needed Continued inpatient stay, converted back to IV Doxy BID to ensure ability to take and working on H2 BID and possible dc in AM on oral Doxy to complete the course and will plan to continue pepcid/acid suppression as well. Admission and Anticipated Discharge Date Admission Date: December 17, 2023 Results & Data Results & Data Vital Signs (Past 12 Hours) Vital Signs Temp Pulse Resp BP Pulse Ox O2 Del Method 12/19/23 07:35 36.6 C 88 18 135/88 96 Room Air 12/18/23 21:00 Room Air 12/18/23 20:10 36.8 C 87 16 131/78 96 Room Air Laboratory Results 12/19/23 12/18/23 12/18/23 Range/Units 06:50 Unknown 21:55 WBC 6.17 (4.8-10.8) K/ul RBC 3.46 L (4.20-5.40) M/uL Hgb 10.1 L (12.0-16.0) g/dl Hct 30.1 L (37.0-47.0) % MCV 87.0 (80.0-100.0) fL MCH 29.2 (25.0-34.0) pg MCHC 33.6 (32.0-36.0) g/dL RDW Std Deviation 41.4 (36.4-46.3) fL RDW Coeff of Angie 13.2 (11.5-14.5) % Plt Count 165 D (130-400) K/uL MPV 10.3 (9.4-12.4) fL Immature Gran % (Auto) % Neut % (Auto) % Lymph % (Auto) % Elk % (Auto) % Eos % (Auto) % Baso % (Auto) % Neut # (Auto) (1.40-6.50) K/uL Lymph # (Auto) (1.20-3.40) K/uL Elk # (Auto) (0.11-0.59) K/uL Eos # (Auto) (0.00-0.50) K/uL Baso # (Auto) (0.00-0.20) K/uL Immature Gran # (Auto) (0.01-0.20) K/uL Neutrophils % (Manual) 33 % Lymphocytes % (Manual) 42 % Reactive Lymphs % (Man) 13 % Monocytes % (Manual) 10 % Eosinophils % (Manual) 2 % Neutrophils # (Manual) 2.04 (1.40-6.50) K/uL Total Absolute Neuts 2.04 (1.4-6.5) K/uL Lymphocytes # (Manual) 2.59 (1.2-3.4) K/uL Reactive Lymphs # 0.80 K/uL Total Abs Lymphocytes 3.39 (1.2-3.4) K/uL Monocytes # (Manual) 0.62 H (0.11-0.59) K/uL Eosinophils # (Manual) 0.12 (0-0.50) K/uL PT (9.0-12.0) Seconds INR (0.9-1.1) Sodium 141 (136-145) mmol/L Potassium 4.0 (3.5-5.1) mmol/L Chloride 113 H (98-107) mmol/L Carbon Dioxide 23 (21-32) mmol/L Anion Gap 5 (3-11) BUN 19 (6-23) mg/dl Creatinine 0.84 (0.6-1.2) mg/dl Est Cr Clr Drug Dosing 76.3 ml/min eGFR 82.01 BUN/Creatinine Ratio 22.6 H (10-20) Glucose 93 (70-99(Fasting)) mg/dl Calcium 8.6 (8.6-10.3) mg/dl Magnesium 2.1 (1.7-2.4) mg/dl Total Bilirubin 0.4 (0.2-1.0) mg/dl AST 28 (13-39) U/L ALT 32 (7-52) U/L Alkaline Phosphatase 78 (34-104) U/L Total Protein 6.3 (6.0-8.3) gm/dl Albumin 3.1 L (3.4-5.0) gm/dl Globulin 3.2 (2.5-4.0) gm/dl Albumin/Globulin Ratio 1.0 (0.9-2) Urine Color Yellow Yellow Urine Appearance Clear Clear (Clear) Urine pH 8.5 H 8.0 H (4.5-7.5) Ur Specific Sterling 1.012 1.012 (1.000-1.030) Urine Protein 1+ H Trace H (Negative) Urine Glucose (UA) Negative Negative (Negative) Urine Ketones Negative Negative (Negative) Urine Blood 1+ H Trace H (Negative) Urine Nitrite Negative Negative (Negative) Urine Bilirubin Negative Negative (Negative) Urine Urobilinogen Negative Negative (Negative) Ur Leukocyte Esterase Negative Negative (Negative) Urine WBC (Auto) 0-5 0-5 (0-5) /hpf Urine RBC (Auto) 6-10 H 6-10 H (0-2) /hpf U Hyaline Cast (Auto) 0-2 0-2 (0-2) /lpf U Epithel Cells (Auto) 0-2 0-2 (0-2) /hpf Urine Bacteria (Auto) None Seen None Seen (None Seen) 12/18/23 Range/Units 06:50 WBC (4.8-10.8) K/ul RBC (4.20-5.40) M/uL Hgb (12.0-16.0) g/dl Hct (37.0-47.0) % MCV (80.0-100.0) fL MCH (25.0-34.0) pg MCHC (32.0-36.0) g/dL RDW Std Deviation (36.4-46.3) fL RDW Coeff of Angie (11.5-14.5) % Plt Count (130-400) K/uL MPV (9.4-12.4) fL Immature Gran % (Auto) 0.6 % Neut % (Auto) 35.1 % Lymph % (Auto) 51.2 % Elk % (Auto) 11.5 % Eos % (Auto) 1.0 % Baso % (Auto) 0.6 % Neut # (Auto) 1.81 (1.40-6.50) K/uL Lymph # (Auto) 2.63 (1.20-3.40) K/uL Elk # (Auto) 0.59 (0.11-0.59) K/uL Eos # (Auto) 0.05 (0.00-0.50) K/uL Baso # (Auto) 0.03 (0.00-0.20) K/uL Immature Gran # (Auto) 0.03 (0.01-0.20) K/uL Neutrophils % (Manual) % Lymphocytes % (Manual) % Reactive Lymphs % (Man) % Monocytes % (Manual) % Eosinophils % (Manual) % Neutrophils # (Manual) (1.40-6.50) K/uL Total Absolute Neuts (1.4-6.5) K/uL Lymphocytes # (Manual) (1.2-3.4) K/uL Reactive Lymphs # K/uL Total Abs Lymphocytes (1.2-3.4) K/uL Monocytes # (Manual) (0.11-0.59) K/uL Eosinophils # (Manual) (0-0.50) K/uL PT 12.1 H (9.0-12.0) Seconds INR 1.1 (0.9-1.1) Sodium 141 D (136-145) mmol/L Potassium 4.0 (3.5-5.1) mmol/L Chloride 110 H (98-107) mmol/L Carbon Dioxide 26 (21-32) mmol/L Anion Gap 5 (3-11) BUN 16 (6-23) mg/dl Creatinine 0.77 (0.6-1.2) mg/dl Est Cr Clr Drug Dosing 83.2 ml/min eGFR 91.04 BUN/Creatinine Ratio 20.8 H (10-20) Glucose 97 (70-99(Fasting)) mg/dl Calcium 8.1 L (8.6-10.3) mg/dl Magnesium (1.7-2.4) mg/dl Total Bilirubin 0.4 (0.2-1.0) mg/dl AST 41 H (13-39) U/L ALT 42 (7-52) U/L Alkaline Phosphatase 84 (34-104) U/L Total Protein 5.9 L (6.0-8.3) gm/dl Albumin 3.0 L (3.4-5.0) gm/dl Globulin 2.9 (2.5-4.0) gm/dl Albumin/Globulin Ratio 1.0 (0.9-2) Urine Color Urine Appearance (Clear) Urine pH (4.5-7.5) Ur Specific Sterling (1.000-1.030) Urine Protein (Negative) Urine Glucose (UA) (Negative) Urine Ketones (Negative) Urine Blood (Negative) Urine Nitrite (Negative) Urine Bilirubin (Negative) Urine Urobilinogen (Negative) Ur Leukocyte Esterase (Negative) Urine WBC (Auto) (0-5) /hpf Urine RBC (Auto) (0-2) /hpf U Hyaline Cast (Auto) (0-2) /lpf U Epithel Cells (Auto) (0-2) /hpf Urine Bacteria (Auto) (None Seen) PG Care Time/CCT Total # of Minutes Spent Total Time Spent with Patient: Total time spent is greater than 50% in coordination of care (as documented) at patient's floor/unit and/or counseling patient: Coding Diagnoses Anaplasmosis A77.49 Sepsis A41.9 Back pain M54.9
[2023-12-19] MEDS: guaiFENesin/CODEINE 100MG/10MG 5ML UDC PO STA (08:28)
[2023-12-19] MEDS: DOXYCYCLINE HYCLATE 100 MG CAP PO SCH (08:31)
--- NOTE | 2023-12-19 09:27 | Discharge Summary ---
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 Was not given antibiotics as outpatient. Labs drawn 12/11 with leukopenia, improved at admission. New thrombocytopenia. Temp 38.2C on admission, pulse 119bpm, BP 163/76 Biofire negative CXR without acute process Lyme testing negative AST/ALT slight elevation. INR 1.2. Platelets down to 92 (from recent 184) Lactic 1.9, procalcitonin 0.92. Serology POSITIVE for Anaplasma , pathology w/ rare neutrophilic inclusions consistent with anaplasmosis Doxycycline IV BID continued given tolerance to PO on admission, suspect some underlying reflux possible w/ NSAID use and prior recs for pepcid. No overt epigastric tenderness, lipase wnl 19 on admission. No blood in urine/stool reported (does have microscopic hematuria however though, see below) Continued pepcid BID as well as ibuprofen/tylenol for pain/fever with improvement in PO intake/symptoms. SIGNIFICANT improvement since treatment No further fevers, feeling better. WBC normalized, platelets improved/normalized to 165 LFTs now wnl. Fevers stopped, converted to Doxycycline 100mg BID and sent for 14 day course but discussed could limit to 10 days per UpToDate and can discuss in follow up with primary care if resolved given tolerability to doxy but was able to take this morning with zofrna. First morning without headache but did send zofran prn at [facility] to use as needed and discussed may consider holding her topamax but cautious as zofran can cause headache as well/ To call in after dc if any issues as I will be on this weekend but otherwise to f/u with PCP at [facility] this upcoming week prior to returning to work. Note provided. Discussed repeat UA w/ PCP in follow up after completion of abx, ?from lower platelets w/ anaplasmosis but if still ongoing to consider ref to urology outpt for further eval microscopic hematuria. Hgb and plts improved on repeat and denied any bleeding. ?if any underling kidney stone. If stone, not infected as no bacteria on UA obtained by PCP outpatient or on repeat but repeat was on Doxy Codeine cough syrup for chronic cough to see if effective and will plan to continue as needed. Biofire testing negative on admission and CXR negative To call in after dc if any issues as I will be on this weekend but otherwise to f/u with PCP at [facility] this upcoming week prior to returning to work. Note provided. (2) Sepsis: 2/2 to above SIRS criteria on admission- RR 22, T 38.2C, HR 119. Lactic 1.9. Doxycycline as above, blood cultures NGTD x 48 hours. Na normalized and LFTs normalized and no further fevers since admission (3) Back pain: Ongoing x "weeks"; no known preceding event causing symptoms; no triggers L scapular/back pain, not new H/o breast implants 2/ [employer] (2018); ? possible source coughing x 6 weeks Mild tenderness to palpation; appears musculoskeletal in nature No personal h/o cardiac disease; h/o mixed hyperlipidemia, not on meds CXR- no acute EKG ST; no ischemic changes; trop 7.6 Lipid panel (08/01/23)- Total cholesterol 225; otherwise grossly WNL Voltaren to area prn to see if alleviates symptoms Improving, ?2nd to tick bourne illness as above. Of note, do see UA from 12/11 with both blood/RBC, ?underlying kidney stone. Renal/bladder US without abn and ?if does have possible underlying stone. Consider ref to urology in f/u for eval microscopic hematuria Blood cultures NEG x 48 hours, no further fevers. Pepcid BID at [facility], outpt f/u for GI sx and encouraged to hold off further ozempic for now. Cautious use NSAIDs but hgb improved off IVF with continued tx. Lipase wnl and LFTs normalized w/ tx Chronic migraine- Continued topiramate. Interestingly even with zofran reporting first day NOT having a headache. Sent with zofran as needed but discussed can cause headaches as well Notes For Next Care Provider Consider shortening course of Doxy to 10 days given issues with medication. Encouarged increased fluid intake with Doxy to prevent esophagitis (endorses doesn't have great fluid intake at baseline) Consider repeat UA once completing treatment to see if hematuria ?related to low platelet count from current process vs underlying stone vs other/referral to Urology for eval microscopic hematuria. Encouraged to hold off further Ozempic for now given GI issues. Hgb improved off IVF and no bleeding reported and is being sent on pepcid BID (wanted to avoid protonix/black box for cdiff) but could consider PPI if needed/ongoing issues Medication Changes From Visit Doxycycline 100mg PO BID x 14 day course (possible cut at 10 days per UpToDate) Pepcid 20mg PO BID (consider PPI if needed) Zofran 4mg ODT prn Codeine cough syrup prn Hold semaglutide for now, has been weaning off Admission HPI Per Admitting Provider Patient is a 53-year-old female presenting to ED via private vehicle for ongoing fever, cough, and 2 reported tick bites approximately 3 weeks ago. Continue to have fever, body aches, headaches. Temperature reaching 102F. ED course: CBC- WBC 5.6, H&H 10.2/12.9, platelet 92; PT 12.7, INR 1.2; CMP- Na 132, CO2 20, AST 58, ALT 58; calcium 8.1; Pro-Long 0.93; Anaplasma positive. EKG sinus rhythm, tachycardic at 110 bpm.; CXR- no acute processes. Provided with NSS, doxycycline x 1 and Rocephin x 1 in ED. Patient is a 53-year-old female with PMHx HLD, migraines, h/o breast CA, and metabolic syndrome presenting for ongoing fever, aching, and headache. Reports that 2 to 3 weeks ago she had 2 ticks in her upper back, both which were removed but she believes that they were embedded for greater than 48 hours. States that she did not seek medical attention following this therefore has not been on any antibiotics since these bites. Started to notice symptoms of ORR, ongoing fever, generalized achiness, and nausea. Went to her PCP on 12/11 to have testing done which revealed leukopenia, hyponatremia, and elevated CRP at 1.3, with additional Lyme testing pending from outpatient provider. Reports that she was not given antibiotics at that time. Continuing to have fevers (Tmax 102.8) as well as aching, fatigue with mild SOB, and nausea without vomiting. Has been utilizing IBU and Tylenol [id number]. Never had this happen before. Additionally reporting left-sided scapular/back pain that is constant, does not change, and is dependent on amount of activity she does throughout the day. Please see Dr. Willett's attestation for adjustments/additions to treatment plan. Admission Exam Per Admitting Provider General: Appears uncomfortable Skin: Warm and dry; 2, small, minimally erythematous areas where previous ticks were removed from on back (near L scapula, just below R scapula); no erythema migrans Head: Normocephalic, atraumatic Eyes: PERRL, conjunctivae clear, sclera non-icteric; EOM intact ENT: External ear and ear canal without swelling; nose atraumatic; good dentition Neck: Supple, no LAD; no JVD Cardio: Tachycardic, regular rhythm, no M/G/R, S1 and S2 normal Resp: Chest wall symmetric, normal respiratory effort; No respiratory distress, Lungs CTA in all lobes bilaterally, no wheezes, rales, or rhonchi Abdomen: Soft, symmetric, nontender; no distention; No masses or hepatosplenomegaly MSK: No deformities, strength equal and symmetric; sensation normal to UE/LE; pulses palpable and equal; No edema; minimal tenderness to palpation L back/armpit Neuro: Awake, alert; CN intact Psych: Appropriate mood and affect; good judgement and insight. is present in room at time of visit Discharge Exam General: 53yo female sitting up in bed today, appears improved HEENT: mm improved, trachea midline Resp: even/unlabored, no significant w/c/r, 96% on RA CV: RRR, no significant m/r/g or leg edema GI: +BS, soft/no overt tenderness/guarding/rebound no [place] MSK/Neuro: generalized aches/pains but non focal, answering questions appropriately, not confused Psych: AOx3, cooperative with exam, decreased fatigue appearing. Discharge Plan Discharge Items Patient Disposition: Home - Self-Care Reason For Visit: ANAPLASMA Discharge Diagnosis: Anaplasmosis Condition on Discharge: Good Goals: You have been hospitalized for an acute medical problem. During your stay at [facility], we have made an effort to correct the problem that brought you to the hospital while keeping you as comfortable as possible. Medications were used to bring your condition under control and your discharge instructions will include directions for any medications you should take after leaving the hospital. Please make sure you see your Primary Care Provider as part of your follow up plan. Activity: As commented below Non-emergency contact: Primary Care Provider Call non-emergency contact if: you have any medication questions, your symptoms worsen, your pain is not controlled, your pain is worsening and you have a fever Follow-up/Referrals: Maryann Terry [Primary Care Provider] - 12/26/23 1:45 pm Diet: Heart Healthy Addtl Attending Provider Instructions: You have been hospitalized for illness following tick bite and while Lyme testing was negative, ANAPLASMOSIS was POSITIVE. You have been started on Doxycycline which will be continued 100mg by mouth twice daily for 14 day course (could be shortened to 10 day course if having issues with tolerating this medication per up to date guidelines). You should drink with glass of water to prevent esophagitis/reflux issues and if occur please notify primary care. Also be cautious of sun exposure while on this medication. You are being sent on zofran as needed for nausea with medication as well as pepcid twice daily for reflux. Cautious use of NSAIDs as discussed. We are also sending some cough syrup to use as needed. Please do not drive if using this medication. We did note blood in urine. Please discuss with primary care about possibly re peating this once completed course for Anaplasmosis to see if maybe related to low platelets on admission (which have improved/normalized) or if may benefit from referral to Urology for further evaluation of microscopic hematuria. As noted, possible to have underlying stone but no bacteria noted on either of the UA from 12/11 or 12/17. Please follow up with primary care in the next week after discharge to monitor your progress since hospitalization and for clearance to return to work. Should remain off for the next week to recover. Please return to the ER with any repeat fevers, worsening pain, shortness of breath, or for any other symptoms concerning for you. It has been a pleasure being a part of the medical team providing for you while you have been in the hospital. Take care! Pending Studies at Discharge: Yes Studies:: Blood cultures -- NO GROWTH TO DATE Anaplasmosis DNA Stand-Alone Forms: [employer], Work/School Release, Smoking Cessation Medications and DC Order Prescriptions: New doxycycline hyclate 100 mg Capsule 100 mg PO BID 12 Days Qty: 23 0RF ondansetron 4 mg tablet,disintegrating 4 mg PO Q8H 4 Days Qty: 12 0RF famotidine 20 mg tablet 20 mg PO BID Qty: 60 0RF codeine-guaifenesin [Guaifenesin AC] 10-100 mg/5 mL liquid 5 ml PO Q6H PRN (Reason: cough) Qty: 118 0RF Continued Zyrtec 10 mg capsule 10 mg PO QAM phentermine 37.5 mg tablet 37.5 mg PO QAM Qty: 30 1RF Rx Instructions: Last OV 10/30/23 Next OV 3 months ibuprofen 200 mg Tablet 200 mg PO Q6H PRN (Reason: Pain) calcium carbonate 500 mg calcium (1,250 mg) Tablet,Chewable 1,000 mg PO DAILY cholecalciferol (vitamin D3) [Vitamin D3] 50 mcg (2,000 unit) Tablet 50 mcg PO DAILY topiramate 25 mg tablet 50 mg PO QAM Discharge Orders: Discharge Order (Routine); Ordered 12/19/23 Ordered By: Dena Pagan Admission Data Admit Date/Time: 12/17/23 10:14 Attending Provider: Leo Berg Admit Provider: Jasbir Willett Primary Care Provider: Maryann Terry Other Providers: Leo Berg Other Interventions: Discharge Summary Assessment (RN) Last Done: 12/19/23 10:11 Hospital Stay Data Consultations 12/17/23 09:17 ED Decision to Admit Stat Diagnostic Imagining Performed Chest X-Ray 12/17/23 07:11 XR chest 1V portable CLINICAL HISTORY: fever, cough TECHNIQUE: Single frontal radiograph of the chest was obtained. Comparison: Comparison is made to chest radiograph 12/12/2023 FINDINGS: No lines and tubes are seen. The cardiomediastinal silhouette is normal. The lungs are clear. No evidence of pleural effusion or pneumothorax. IMPRESSION: No acute abnormalities and in particular no radiographic evidence of pneumonia. ACT 112: Negative or not required by law. Electronically signed by: Pedro Joseph M.D. 12/17/2023 7:30 AM Renal Ultrasound 12/18/23 16:22 US renal/blad retro comp CLINICAL HISTORY: hematuria TECHNIQUE: Multiple sonographic real-time images of the kidneys and bladder were obtained. COMPARISON: None available at the time of this dictation. FINDINGS: The right kidney measures 10.9 cm in length, and the left kidney measures 10.6 cm in length. The right kidney is normal in size, contour, cortical thickness, and echogenicity. No hydronephrosis is identified. No renal lesion is identified. The left kidney is normal in size, contour, cortical thickness and echogenicity. No hydronephrosis is identified. No renal lesion is identified. The bladder is partially distended. Bilateral jets are seen. IMPRESSION: Unremarkable renal ultrasound. ACT 112: Negative or not required by law. Electronically signed by: Pedro Joseph M.D. 12/18/2023 5:33 PM Discharge Instructions Given to Patient (Per Discharging Provider) You have been hospitalized for illness following tick bite and while Lyme testing was negative, ANAPLASMOSIS was POSITIVE. You have been started on Doxycycline which will be continued 100mg by mouth twice daily for 14 day course (could be shortened to 10 day course if having issues with tolerating this medication per up to date guidelines). You should drink with glass of water to prevent esophagitis/reflux issues and if occur please notify primary care. Also be cautious of sun exposure while on this medication. You are being sent on zofran as needed for nausea with medication as well as pepcid twice daily for reflux. Cautious use of NSAIDs as discussed. We are also sending some cough syrup to use as needed. Please do not drive if using this medication. We did note blood in urine. Please discuss with primary care about possibly repeating this once completed course for Anaplasmosis to see if maybe related to low platelets on admission (which have improved/normalized) or if may benefit from referral to Urology for further evaluation of microscopic hematuria. As noted, possible to have underlying stone but no bacteria noted on either of the UA from 12/11 or 12/17. Please follow up with primary care in the next week after discharge to monitor your progress since hospitalization and for clearance to return to work. Should remain off for the next week to recover. Please return to the ER with any repeat fevers, worsening pain, shortness of breath, or for any other symptoms concerning for you. It has been a pleasure being a part of the medical team providing for you while you have been in the hospital. Take care! Supervising Physician Co-Signing Physician Notes The patient was not seen by me. The chart was reviewed. Case discussed with JH Smith. Agree with assessment and plan Total Time Total Time Spent Total Time Spent (In Minutes): 40 Coding Level of Care Code 60644 INP/OBS DISCH >30 MIN Diagnoses Anaplasmosis A77.49 Sepsis A41.9 Back pain M54.9
[2023-12-19 10:12] VITALS: BP 95/57; PULSE 85
== END 2023-12-19 10:30 | disposition home or self-care (01) | DRG 872 ==
LOC: ED 06:53 → SUATTDRO 10:14 → 3W 10:14